=== PATIENT | female | born 1980 | race Caucasian/White ===

== ENCOUNTER 2016-06-09 16:19 | Observation (INO) | payer OTHER ==
[~2016-06-09] VITALS: Ht 157.5 cm; Wt 71.7 kg
== END 2016-06-09 17:21 | disposition home or self-care (01) ==
LOC: L&D 16:19
PROVIDERS: ADMIT Obstetrics & Gynecology; ATTEND Obstetrics & Gynecology
DX: O26.899 Other specified pregnancy related conditions, unspecified trimester (principal); Z3A.00 Weeks of gestation of pregnancy not specified
CPT/HCPCS: 76815; 76818; G0378; 59025